=== PATIENT | female | born 1995 | race Caucasian/White ===

== ENCOUNTER 2017-10-16 02:01 | Emergency (ER) | payer MEDICAID ==
[2017-10-16] MEDS ORDERED: HYDROmorphONE/DILAUDID 1 MG/ML INJ IVP ONE (02:27)
[2017-10-16] MEDS ORDERED: NS 1,000 ML IV ONE (02:27)
[2017-10-16 02:32] LABS: % IMMATURE GRANULYOCYTES 0.4 % (0.0-1.1); ABSOLUTE IMMATURE GRANULOCYTES 0.07 10^3/uL (0.00-0.10); ADD DIFF? NO; ADD MORPH? NO; ADD SCAN? NO; ATYPICAL LYMPHOCYTE FLAG 0 (0-99); FRAGMENT RBC FLAG 0 (0-99); HEMATOCRIT 40.7 % (38.0-47.0); HEMOGLOBIN 13.8 g/dL (12.6-16.3); LEFT SHIFT FLG 0 (0-99); LIPEMIA HEMOLYSIS FLAG 90 (0-99); MEAN CELL HEMOGLOBIN 28.9 pg (27.9-34.1); MEAN CELL HEMOGLOBIN CONCENTR. 33.9 g/dL (32.4-36.7); MEAN CELL VOLUME 85.1 fL (81.5-99.8); MEAN PLATELET VOLUME 9.9 fL (8.7-11.7); PLATELET CLUMPS FLAG 0 (0-99); PLATELET COUNT 441 10^3/uL (150-400); RED BLOOD CELL COUNT 4.78 10^6/uL (4.18-5.33); RED CELL DISTRIBUTION WIDTH 12.2 % (11.5-15.2)
[2017-10-16 02:38] LABS: ALANINE AMINOTRANSFERASE 34 IU/L (9-52); ALBUMIN 3.9 g/dL (3.5-5.0); ALKALINE PHOSPHATASE 123 IU/L (38-126); ANION GAP 11 mEq/L (8-16); ASPARTATE AMINOTRANSFERASE 19 IU/L (14-46); BILIRUBIN,TOTAL 0.3 mg/dL (0.1-1.4); BILIRUBIN-CONJUGATED 0.1 mg/dL (0.0-0.5); BILIRUBIN-UNCONJUGATED 0.2 mg/dL (0.0-1.1); CALCIUM 9.5 mg/dL (8.5-10.4); CARBON DIOXIDE 26 mEq/l (22-31); CHLORIDE 102 mEq/L (97-110); CREATININE 0.8 mg/dL (0.6-1.0); GLOMERULAR FILTRATION RATE > 60; GLUCOSE 99 mg/dL (70-100); POTASSIUM 4.1 mEq/L (3.5-5.2); SODIUM 139 mEq/L (134-144); TOTAL PROTEIN 7.7 g/dL (6.3-8.2)
--- NOTE | 2017-10-16 02:38 | EDPHY ---
H & P Stated Complaint: RLQ cramping since 1300 Time Seen by Provider: 10/16/17 02:14 HPI/ROS: HPI The patient presents with right lower quadrant abdominal pain which has been present since 2:00 p.m. which has been intermittent though has gotten worse over the last several hours. The pain is both crampy and sharp, does not radiate, it is not improved with a [place] which she took at home. As she does not have any vomiting, fever, anorexia. She had 2 normal bowel movements today. Her last menstrual period was is about 1 week ago and lasted for 7 days , longer than her normal 3-5 day menses. She has never had this pain before. She was diagnosed with Hodgkin's lymphoma with an incisional biopsy of her left neck which was performed on October 09. She has not started any treatment yet. She is followed by an oncologist.. REVIEW OF SYSTEMS Constitutional: No fever, no chills. Eyes: No discharge. ENT: No sore throat. Cardiovascular: No chest pain, no palpitations. Respiratory: No cough, no shortness of breath. Gastrointestinal: Positive for abdominal pain, no vomiting. Genitourinary: No hematuria. Musculoskeletal: No back pain. Skin: No rashes. Neurological: No headache. PMHx: Newly diagnosed Hodgkin's lymphoma Soc Hx: College student PHYSICAL General Appearance: Alert, no distress Eyes: Pupils equal and round no pallor or injection ENT, Mouth: Mucous membranes moist, large left-sided neck mass, dressing is clean dry and intact Respiratory: There are no retractions, lungs are clear to auscultation Cardiovascular: Regular rate and rhythm Gastrointestinal: Abdomen is soft and mildly tender in the right lower quadrant , no masses, bowel sounds normal Neurological: A&O, moves all extremities Skin: Warm and dry, no rashes Musculoskeletal: Neck is supple non tender Extremities: symmetrical, full range of motion Psychiatric: Patient is oriented X 3, there is no agitation Source: Patient Exam Limitations: No limitations - Personal History LMP (Females 10-55): 1-7 Days Ago Current Tetanus/Diphtheria Vaccine: Yes Tetanus Vaccine Date: <10 years - Medical/Surgical History Hx Asthma: No Hx Chronic Respiratory Disease: No Hx Diabetes: No Hx Cardiac Disease: No Hx Renal Disease: No Hx Cirrhosis: No Hx Alcoholism: No Hx HIV/AIDS: No Hx Splenectomy or Spleen Trauma: No Other PMH: hodgkins lymphoma - Social History Smoking Status: Former smoker Constitutional: Initial Vital Signs Heart Rate 93 10/16/17 02:03 Respiratory Rate 18 10/16/17 02:03 Blood Pressure 128/72 H 10/16/17 02:03 O2 Sat (%) 100 10/16/17 02:03 O2 Delivery Mode Room Air Allergies/Adverse Reactions: No Known Allergies Allergy (Verified 10/16/17 02:06) Home Medications: Medication Instructions Recorded Hydrocodone/APAP 5/325 [[place] 1 - 2 tab PO Q4H PRN #20 tab 01/16/16 5/325 (RX)] Medical Decision Making - Diagnostics Imaging Results: CT abdomen pelvis with IV contrast demonstrates diffuse hazy edema without mass effect involving the omentum, retroperitoneum and mesentery. There is small amount of free fluid. There is no mass, lymphadenopathy, appendicitis, discussed with Dr. Calderon of Radiology. Ultrasound pelvic and right lower quadrant demonstrate free fluid in the right lower quadrant, unable to visualize the appendix, right adnexal appears normal, discussed with Dr. Calderon of Radiology. Differential Diagnosis: This is a 22-year-old female, diagnosed just a few days ago with Hodgkin's lymphoma based on biopsy results, presents now with 1 day of right lower quadrant abdominal pain without any associated features. Differential diagnosis includes appendicitis, ovarian cyst with rupture, ovarian torsion, possible lymphadenopathy. In the emergency department, patient was given IV fluids for presumed volume depletion. Labs were checked and did reveal leukocytosis which could be related to her underlying malignancy verses acute infection. Ultrasound was performed which did demonstrate small amount of free fluid in the abdomen, appendix was not visualized, ovaries appear normal. Because of the uncertainty about appendicitis, I reexamined the patient and she continued to have right lower quadrant abdominal tenderness. CT scan of the abdomen pelvis was ordered which demonstrated some diffuse hazy edema in the omentum, retroperitoneum and mesentery. The cause of this is unclear. The patient's bowels appear normal and she does not have any is obstructive lymphadenopathy. I suspect it could be related to her malignancy somehow. The patient was reexamined and was feeling much better at this time. I have offered her admission to the hospital, however she declines, she would like to go home and follow up with her treating doctors as an outpatient. I feel this is reasonable. She will be discharged home and we have discussed pain medicine regimen. She is to return if she is worse in any way. - Data Points Laboratory Results: Laboratory Results 10/16/17 02:18 10/16/17 02:18 10/16/17 10/16/17 10/16/17 03:20 02:18 02:18 WBC RBC Hgb Hct MCV MCH MCHC RDW Plt Count MPV Neut % (Auto) Lymph % (Auto) [place] % (Auto) Eos % (Auto) Baso % (Auto) Nucleat RBC Rel Count Absolute Neuts (auto) Absolute Lymphs (auto) Absolute Monos (auto) Absolute Eos (auto) Absolute Basos (auto) Absolute Nucleated RBC Immature Gran % Immature Gran # Sodium 139 mEq/L mEq/L (134-144) Potassium 4.1 mEq/L mEq/L (3.5-5.2) Chloride 102 mEq/L mEq/L (97-110) Carbon Dioxide 26 mEq/l mEq/l (22-31) Anion Gap 11 mEq/L mEq/L (8-16) BUN 13 mg/dL mg/dL (7-23) Creatinine 0.8 mg/dL mg/dL (0.6-1.0) Estimated GFR > 60 Glucose 99 mg/dL mg/dL (70-100) Calcium 9.5 mg/dL mg/dL (8.5-10.4) Total Bilirubin 0.3 mg/dL mg/dL (0.1-1.4) Conjugated Bilirubin 0.1 mg/dL mg/dL (0.0-0.5) Unconjugated Bilirubin 0.2 mg/dL mg/dL (0.0-1.1) AST 19 IU/L IU/L (14-46) ALT 34 IU/L IU/L (9-52) Alkaline Phosphatase 123 IU/L IU/L (38-126) Total Protein 7.7 g/dL g/dL (6.3-8.2) Albumin 3.9 g/dL g/dL (3.5-5.0) Beta HCG, Qual NEGATIVE Urine Color YELLOW Urine Appearance HAZY Urine pH 5.0 (5.0-7.5) Ur Specific [place] 1.025 (1.002-1.030) Urine Protein NEGATIVE (NEGATIVE) Urine Ketones NEGATIVE (NEGATIVE) Urine Blood 1+ H (NEGATIVE) Urine Nitrate NEGATIVE (NEGATIVE) Urine Bilirubin NEGATIVE (NEGATIVE) Urine Urobilinogen NEGATIVE EU EU (0.2-1.0) Ur Leukocyte Esterase NEGATIVE (NEGATIVE) Urine RBC 1-3 /hpf /hpf (0-3) Urine WBC 1-3 /hpf /hpf (0-3) Ur Epithelial Cells TRACE /lpf /lpf (NONE-1+) Urine Mucus 1+ /lpf /lpf (NONE-1+) Urine Glucose NEGATIVE (NEGATIVE) 10/16/17 02:18 WBC 16.89 10^3/uL H 10^3/uL (3.80-9.50) RBC 4.78 10^6/uL 10^6/uL (4.18-5.33) Hgb 13.8 g/dL g/dL (12.6-16.3) Hct 40.7 % % (38.0-47.0) MCV 85.1 fL fL (81.5-99.8) MCH 28.9 pg pg (27.9-34.1) MCHC 33.9 g/dL g/dL (32.4-36.7) RDW 12.2 % % (11.5-15.2) Plt Count 441 10^3/uL H 10^3/uL (150-400) MPV 9.9 fL fL (8.7-11.7) Neut % (Auto) 77.5 % H % (39.3-74.2) Lymph % (Auto) 14.6 % L % (15.0-45.0) [place] % (Auto) 5.1 % % (4.5-13.0) Eos % (Auto) 2.0 % % (0.6-7.6) Baso % (Auto) 0.4 % % (0.3-1.7) Nucleat RBC Rel Count 0.0 % % (0.0-0.2) Absolute Neuts (auto) 13.11 10^3/uL H 10^3/uL (1.70-6.50) Absolute Lymphs (auto) 2.46 10^3/uL 10^3/uL (1.00-3.00) Absolute Monos (auto) 0.86 10^3/uL H 10^3/uL (0.30-0.80) Absolute Eos (auto) 0.33 10^3/uL 10^3/uL (0.03-0.40) Absolute Basos (auto) 0.06 10^3/uL 10^3/uL (0.02-0.10) Absolute Nucleated RBC 0.00 10^3/uL 10^3/uL (0-0.01) Immature Gran % 0.4 % % (0.0-1.1) Immature Gran # 0.07 10^3/uL 10^3/uL (0.00-0.10) Sodium Potassium Chloride Carbon Dioxide Anion Gap BUN Creatinine Estimated GFR Glucose Calcium Total Bilirubin Conjugated Bilirubin Unconjugated Bilirubin AST ALT Alkaline Phosphatase Total Protein Albumin Beta HCG, Qual Urine Color Urine Appearance Urine pH Ur Specific [place] Urine Protein Urine Ketones Urine Blood Urine Nitrate Urine Bilirubin Urine Urobilinogen Ur Leukocyte Esterase Urine RBC Urine WBC Ur Epithelial Cells Urine Mucus Urine Glucose Medications Given: Discontinued Medications Hydromorphone HCl (Dilaudid) 0.5 mg IVP EDNOW ONE Stop: 10/16/17 02:28 Last Admin: 10/16/17 02:39 Dose: 0.5 mg Sodium Chloride (Ns) 1,000 mls @ 0 mls/hr IV EDNOW ONE; Wide Open PRN Reason: Protocol Stop: 10/16/17 02:28 Last Admin: 10/16/17 02:34 Dose: 1,000 mls Ketorolac Tromethamine (Toradol) 15 mg IVP EDNOW ONE Stop: 10/16/17 03:43 Last Admin: 10/16/17 03:43 Dose: 15 mg Departure - Departure Disposition: Home, Routine, Self-Care Clinical Impression: RLQ abdominal pain Hodgkin lymphoma Qualifiers: Hodgkin lymphoma type: unspecified type Lymphoma site: unspecified region Qualified Code(s): C81.90 - Hodgkin lymphoma, unspecified, unspecified site Condition: Good Instructions: Acute Abdominal Pain (ED) Additional Instructions: Your CT scan of your abdomen today shows that there is diffuse hazy edema of the omentum, retroperitoneal region, and mesentery of your abdomen. There was a small amount of free fluid. We did not find any masses, lymphadenopathy, appendicitis. It is unclear if the findings on your CT scan are causing your pain. Because of this, I would like for you to follow up with your treating doctor in 1-2 days for recheck to make sure your pain is getting better. In the meantime, you should take ibuprofen or Advil 400 mg every 6 hr for pain. If the pain is still severe after this you can take 1-2 pills of [place] every 6 hr as well. I recommend that you continue taking prune juice and could also use MiraLax or Metamucil if you are feeling constipated. You should return to the emergency department if youre worse in any way. Referrals: Gerald Swenson MD [Medical Doctor] - As per Instructions
[2017-10-16 03:25] LABS: COLOR YELLOW; LEUKOCYTE ESTERASE,URINE NEGATIVE (NEGATIVE); NITRITE,URINE NEGATIVE (NEGATIVE)
[2017-10-16 03:33] LABS: MUCUS 1+ /lpf (NONE-1+)
[2017-10-16] MEDS ORDERED: KETOROLAC 15 MG/1 ML SDV ONE (03:36)
[2017-10-16] MEDS ORDERED: KETOROLAC 15 MG/1 ML SDV IVP ONE (03:42)
[2017-10-16] MEDS ORDERED: IOPAMIDOL (ISOVUE-300) 100 ML BTL ONE (04:08)
[2017-10-16 05:22] VITALS: BP 115/73; PULSE 64; RESP 16; TEMP 98.6; O2SAT 96
== END 2017-10-16 05:22 | disposition home or self-care (01) ==
DX: R10.31 Right lower quadrant pain (principal); C81.90 Hodgkin lymphoma, unspecified, unspecified site; E86.9 Volume depletion, unspecified; Z87.891 Personal history of nicotine dependence
CPT/HCPCS: 96374; J1170; J1885; Q9967

== ENCOUNTER 2017-10-16 19:33 | Emergency (ER) | payer MEDICAID ==
[2017-10-16 19:39] VITALS: TEMP 98.2
[2017-10-16] MEDS ORDERED: KETOROLAC 30 MG/1 ML SDV IVP ONE (19:50)
--- NOTE | 2017-10-16 19:54 | EDPHY ---
H & P Stated Complaint: abdominal cramping without N,V,D - Personal History LMP (Females 10-55): 1-7 Days Ago Tetanus Vaccine Date: <10 years - Medical/Surgical History Hx Asthma: No Hx Chronic Respiratory Disease: No Hx Diabetes: No Hx Cardiac Disease: No Hx Renal Disease: No Hx Cirrhosis: No Hx Alcoholism: No Hx HIV/AIDS: No Hx Splenectomy or Spleen Trauma: No Other PMH: hodgkins lymphoma - Social History Smoking Status: Former smoker Time Seen by Provider: 10/16/17 19:41 HPI/ROS: CHIEF COMPLAINT: Continued abdominal pain, cramping HISTORY OF PRESENT ILLNESS: 22-year-old female with recent diagnosis of Hodgkin' s lymphoma will follow up by Dr. Vazquez Oncology, seen emergency department earlier today with comprehensive evaluation by the ER physician including CT imaging, ultrasound, was discharged home, returns to the ER complaining of continued abdominal pain without vomiting or diarrhea. She had incisional biopsy of left neck lymph node by Dr. Gerald Swenson October 09, spoke with him this morning recommend she return to the ER if she continue to experience discomfort. She denies: Fever, chills, urinary abnormality REVIEW OF SYSTEMS: A ten point review of systems was performed and is negative with the exception of the items mentioned in the HPI PAST MEDICAL & SURGICAL HISTORY: Recent diagnosis of Hodgkin's lymphoma SOCIAL HISTORY:Nonsmoker, student PHYSICAL EXAM (Prior to examination, patient consented to physical exam, hands were washed and my usual and customary physical exam procedures followed) 1) GENERAL: Well-developed, well-nourished, alert and oriented. Appears uncomfortable, tearful. 2) HEAD: Normocephalic, atraumatic 3) HEENT: Pupils equal, round, reactive to light bilaterally. Sclera anicteric. Nasopharynx, oropharynx, clear, no lesions. 4) NECK: Full range of motion, no meningeal signs. 5) LUNGS: Clear auscultation bilaterally, no wheezes, no rhonchi, no retractions. 6) HEART: Regular rate and rhythm, no murmur, no heave, no gallop. 7) ABDOMEN: Guarding abdomen, diffusely tender to palpation 8) MUSCULOSKELETAL: Moving all extremities, no focal areas of tenderness, no obvious trauma. No peripheral edema or discoloration. 9) BACK: No CVA tenderness, no midline vertebral tenderness, no fluctuance, no step-off, no obvious trauma, no visual or palpable abnormality. 10) SKIN: No rash, no petechiae. 11) Psychiatric: Patient is oriented X 3, there is no agitation. DIFFERENTIAL DIAGNOSIS: In no particular include but limited to acute appendicitis, acute cholecystitis, mesenteric adenitis (Caty Richmond Gladys) Constitutional: Initial Vital Signs Temperature (C) 36.8 C 10/16/17 19:37 Heart Rate 96 10/16/17 19:37 Respiratory Rate 18 10/16/17 19:37 Blood Pressure 106/72 10/16/17 19:37 O2 Sat (%) 97 10/16/17 19:37 O2 Delivery Mode Room Air Allergies/Adverse Reactions: No Known Allergies Allergy (Verified 10/16/17 02:06) Home Medications: Medication Instructions Recorded Hydrocodone/APAP 5/325 [[place] 1 - 2 tab PO Q4H PRN #20 tab 01/16/16 5/325 (RX)] Medical Decision Making ED Course/Re-evaluation: 7:53 p.m.: Old medical records reviewed, discussed case with secondary supervising physician Dr. Hills in the ER. Consultation with Dr. Gerald Swenson at this time who feels that this is less likely surgical pathology. Patient requests nonnarcotic at this time. 8:36 p.m.: Re-evaluation, complaining of continued pain and nausea after Toradol and Zofran. Agrees to opiate at this time. 9:06 p.m.: Patient seen evaluated by Dr. Hills in the ER. Patient would like to be discharged home. Discussed pain control. (Caty Richmond) 9:00 p.m. I did evaluate this patient independently. Her abdominal exam is benign. She does not have any tenderness. She is complaining of left lower quadrant pain to me. Her white count is slightly elevated compared to yesterday but not significantly. Otherwise lab work is unremarkable. Dr. Gerald Swenson was consulted and we feel that her pain is likely secondary to lymphoma at this point. She has been taking [place] with some relief but states that it is no longer strong enough. She only takes 1 tablet every 6-7 hours. We did discuss admission to the hospital which I believe is a possibility however at some point will need to find a pain medication regimen the can work orally because this the pain will not likely improve any time soon. The patient understands this and would prefer to avoid admission to the hospital. We will try Percocet p.o. to see if this controls her pain better. 9:45pm I spoke with Oncology aircraft inspection record clerk. They do not wish 1st to give her steroids because this will interfere with the PET scan which is scheduled for Thursday. They agree with increasing her home dose of hydrocodone verses switching to oxycodone. They feel hydrocodone would be more possible because oxycodone is hard to cover with insurance. Dr. Swenson has evaluated her and feels that her abdomen is nonsurgical. (Shoaib Hills) Differential Diagnosis: Partial list of the Differential diagnosis considered include but were not limited to; lymphoma, edema, struck bain and although unlikely based on the history and physical exam, I also considered appendicitis, diverticulitis, kidney stone, urinary tract infection. (Shoaib Hills) - Data Points Laboratory Results: Laboratory Results 10/16/17 19:55 10/16/17 19:55 10/16/17 10/16/17 10/16/17 19:55 19:55 19:55 WBC 17.80 10^3/uL H 10^3/uL (3.80-9.50) RBC 4.69 10^6/uL 10^6/uL (4.18-5.33) Hgb 13.4 g/dL g/dL (12.6-16.3) Hct 39.7 % % (38.0-47.0) MCV 84.6 fL fL (81.5-99.8) MCH 28.6 pg pg (27.9-34.1) MCHC 33.8 g/dL g/dL (32.4-36.7) RDW 12.3 % % (11.5-15.2) Plt Count 421 10^3/uL H 10^3/uL (150-400) MPV 9.8 fL fL (8.7-11.7) Neut % (Auto) 83.8 % H % (39.3-74.2) Lymph % (Auto) 9.6 % L % (15.0-45.0) [place] % (Auto) 4.4 % L % (4.5-13.0) Eos % (Auto) 1.6 % % (0.6-7.6) Baso % (Auto) 0.3 % % (0.3-1.7) Nucleat RBC Rel Count 0.0 % % (0.0-0.2) Absolute Neuts (auto) 14.91 10^3/uL H 10^3/uL (1.70-6.50) Absolute Lymphs (auto) 1.70 10^3/uL 10^3/uL (1.00-3.00) Absolute Monos (auto) 0.79 10^3/uL 10^3/uL (0.30-0.80) Absolute Eos (auto) 0.29 10^3/uL 10^3/uL (0.03-0.40) Absolute Basos (auto) 0.06 10^3/uL 10^3/uL (0.02-0.10) Absolute Nucleated RBC 0.00 10^3/uL 10^3/uL (0-0.01) Immature Gran % 0.3 % % (0.0-1.1) Immature Gran # 0.05 10^3/uL 10^3/uL (0.00-0.10) Sodium 139 mEq/L mEq/L (134-144) Potassium 4.1 mEq/L mEq/L (3.5-5.2) Chloride 103 mEq/L mEq/L (97-110) Carbon Dioxide 23 mEq/l mEq/l (22-31) Anion Gap 13 mEq/L mEq/L (8-16) BUN 14 mg/dL mg/dL (7-23) Creatinine 0.8 mg/dL mg/dL (0.6-1.0) Estimated GFR > 60 Glucose 91 mg/dL mg/dL (70-100) Calcium 9.2 mg/dL mg/dL (8.5-10.4) Total Bilirubin 0.5 mg/dL D mg/dL (0.1-1.4) Conjugated Bilirubin 0.2 mg/dL mg/dL (0.0-0.5) Unconjugated Bilirubin 0.3 mg/dL mg/dL (0.0-1.1) AST 25 IU/L IU/L (14-46) ALT 31 IU/L IU/L (9-52) Alkaline Phosphatase 114 IU/L IU/L (38-126) Total Protein 7.4 g/dL g/dL (6.3-8.2) Albumin 3.7 g/dL g/dL (3.5-5.0) Lipase 255 IU/L IU/L (23-300) Beta HCG, Qual NEGATIVE Medications Given: Discontinued Medications Sodium Chloride (Ns) 1,000 mls @ 0 mls/hr IV ONCE ONE PRN Reason: Wide Open Stop: 10/16/17 19:59 Last Admin: 10/16/17 19:59 Dose: 1,000 mls Ketorolac Tromethamine (Toradol) 15 mg IVP EDNOW ONE Stop: 10/16/17 19:51 Last Admin: 10/16/17 19:56 Dose: 15 mg Morphine Sulfate (Morphine) 4 mg IVP EDNOW ONE Stop: 10/16/17 20:36 Last Admin: 10/16/17 20:49 Dose: 4 mg Ondansetron HCl (Zofran) 4 mg IVP EDNOW ONE Stop: 10/16/17 20:36 Last Admin: 10/16/17 20:48 Dose: 4 mg Oxycodone/Acetaminophen (Percocet 5/325) 2 tab PO EDNOW ONE Stop: 10/16/17 21:01 Last Admin: 10/16/17 21:11 Dose: 2 tab Departure - Departure Disposition: Home, Routine, Self-Care Clinical Impression: Abdominal pain Qualifiers: Abdominal location: generalized Qualified Code(s): R10.84 - Generalized abdominal pain Hodgkins lymphoma Qualifiers: Hodgkin lymphoma type: unspecified type Lymphoma site: neck Qualified Code(s): C81.91 - Hodgkin lymphoma, unspecified, lymph nodes of head, face, and neck Condition: Fair Instructions: Acute Abdominal Pain (ED) Additional Instructions: Seek immediate medical attention if you develop new or worsening symptoms, if you develop fevers, chills, inability to tolerate oral intake or any other symptoms that concerns you. Referrals: Pilo Vazquez MD [Medical Doctor] - 10/19/17
[2017-10-16] MEDS ORDERED: NS 1,000 ML IV ONE (19:58)
[2017-10-16 20:00] LABS: % IMMATURE GRANULYOCYTES 0.3 % (0.0-1.1); ABSOLUTE IMMATURE GRANULOCYTES 0.05 10^3/uL (0.00-0.10); ADD DIFF? NO; ADD MORPH? NO; ADD SCAN? NO; ATYPICAL LYMPHOCYTE FLAG 10 (0-99); FRAGMENT RBC FLAG 0 (0-99); HEMATOCRIT 39.7 % (38.0-47.0); HEMOGLOBIN 13.4 g/dL (12.6-16.3); LEFT SHIFT FLG 0 (0-99); LIPEMIA HEMOLYSIS FLAG 90 (0-99); MEAN CELL HEMOGLOBIN 28.6 pg (27.9-34.1); MEAN CELL HEMOGLOBIN CONCENTR. 33.8 g/dL (32.4-36.7); MEAN CELL VOLUME 84.6 fL (81.5-99.8); MEAN PLATELET VOLUME 9.8 fL (8.7-11.7); PLATELET CLUMPS FLAG 0 (0-99); PLATELET COUNT 421 10^3/uL (150-400); RED BLOOD CELL COUNT 4.69 10^6/uL (4.18-5.33); RED CELL DISTRIBUTION WIDTH 12.3 % (11.5-15.2)
[2017-10-16 20:17] LABS: ALANINE AMINOTRANSFERASE 31 IU/L (9-52); ALBUMIN 3.7 g/dL (3.5-5.0); ALKALINE PHOSPHATASE 114 IU/L (38-126); ANION GAP 13 mEq/L (8-16); ASPARTATE AMINOTRANSFERASE 25 IU/L (14-46); BILIRUBIN,TOTAL 0.5 mg/dL (0.1-1.4); BILIRUBIN-CONJUGATED 0.2 mg/dL (0.0-0.5); BILIRUBIN-UNCONJUGATED 0.3 mg/dL (0.0-1.1); CALCIUM 9.2 mg/dL (8.5-10.4); CARBON DIOXIDE 23 mEq/l (22-31); CHLORIDE 103 mEq/L (97-110); CREATININE 0.8 mg/dL (0.6-1.0); GLOMERULAR FILTRATION RATE > 60; GLUCOSE 91 mg/dL (70-100); POTASSIUM 4.1 mEq/L (3.5-5.2); SODIUM 139 mEq/L (134-144); TOTAL PROTEIN 7.4 g/dL (6.3-8.2)
[2017-10-16] MEDS ORDERED: ONDANSETRON 4 MG/2 ML VIAL IVP ONE (20:35)
[2017-10-16] MEDS ORDERED: OXYCODONE/APAP 5/325 TAB PO ONE (21:00)
[2017-10-16 22:17] VITALS: BP 109/69; PULSE 85; RESP 16; O2SAT 93
== END 2017-10-16 22:16 | disposition home or self-care (01) ==
DX: R10.84 Generalized abdominal pain (principal); C81.91 Hodgkin lymphoma, unspecified, lymph nodes of head, face, and neck; Z87.891 Personal history of nicotine dependence
CPT/HCPCS: 96374; J1885; J2405

== ENCOUNTER → 2017-11-26 | Outpatient (CLI) | payer MEDICAID | LOC: FIMAGING 11:13 | PROVIDERS: ATTEND Internal Medicine Hematology & Oncology | DX: R05 Cough (principal); C81.90 Hodgkin lymphoma, unspecified, unspecified site ==